=== PATIENT | female | born 2000 | race African-American/Black ===

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

== ENCOUNTER 2023-12-10 10:49 | Emergency (ER) | payer OTHER, SELFPAY ==
[2023-12-10] VITALS (18 sets, daily range): BP systolic 130–153; BP diastolic 73–101; PULSE 86–133; RESP 12–22; TEMP 36.6–36.9; O2SAT 96–100
[2023-12-10] MEDS: SODIUM CHLORIDE 0.9% IV 1,000 ML 999 ML IV CONT (11:17)
[2023-12-10 11:39] LABS: Basophils Percent Auto 0.3 % (0.2-1.2); Eosinophils Absolute Auto 0.1 K/mm3 (0-0.3); Eosinophils Percent Auto 0.8 % (0-4.4); Hematocrit 38.1 % (37.0-47.0); Hemoglobin 12.5 g/dL (12.0-15.0); Immature Granulocyte Absolute 0.05 K/mm3 (0.00-0.031); Immature Granulocyte Percent A 0.4 % (0-0.5); Lymphocytes Absolute Auto 1.04 K/mm3 (0.9-3.2); Lymphocytes Percent Auto 7.7 % (18.3-44.2); Mean Corpuscular HGB Conc 32.8 g/dl (32-36); Mean Corpuscular Hemoglobin 31.7 pg (26-34); Mean Corpuscular Volume 96.7 fl (80-100); Mean Platelet Volume 10.4 fl (7.4-10.4); Monocytes Absolute Auto 0.6 K/mm3 (0.1-0.6); Monocytes Percent Auto 4.3 % (2.6-8.5); Neutrophils Absolute Auto 11.6 K/mm3 (1.3-6.7); Neutrophils Percent Auto 86.5 % (45.5-73.1); Platelet Count Result 285 k/mm3 (150-375); Red Blood Count 3.94 M/mm3 (4.2-5.4); White Blood Count 13.5 K/mm3 (4.5-10.0)
[2023-12-10 12:04] LABS: Alanine Aminotransferase 12 U/L (6-35); Albumin Level 4.7 g/dL (3.5-5.1); Alkaline Phosphatase 50 U/L (38-126); Anion Gap 11 mmol/L (4-12); Aspartate Amino Transferase 26 U/L (14-36); Bilirubin,Total 0.3 mg/dL (0.2-1.3); Blood Urea Nitrogen 7 mg/dL (7-17); Calcium 9.2 mg/dL (8.4-10.2); Carbon Dioxide 23 mmol/L (22-30); Chloride 104 mmol/L (98-107); Estimated CRCL calculation 94 ml/min; Estimated Glomerular Filt Rate > 60; Glucose 95 mg/dL (65-110); Magnesium 1.9 mg/dL (1.6-2.3); Potassium 4.7 mmol/L (3.4-5.0); Sodium 138 mmol/L (137-145)
[2023-12-10] MEDS: levETIRAcetam 1000MG/NACL100ML 1,000 MG/100 ML BAG 400 MG IVPB (12:10)
--- NOTE | 2023-12-10 12:14 | ED.SEIZURE ---
HPI - Seizure General Chief Complaint: Seizure Stated Complaint: SEIZURE Time Seen by Provider: 12/10/23 10:52 Source: patient and EMS Mode of arrival: EMS Limitations: no limitations History of Present Illness HPI Narrative: This is a 23-year-old female, with reported history of 1 seizure previously, brought in by EMS after a seizure today. EMS reports the patient was at work, dressing a customer, when she reportedly stated to the middle distance and fell to the floor. EMS reports the patient appeared postictal and combative on arrival. She gradually regained orientation and was A&O x2 on arrival. The patient states she does not currently take medications for seizures. She has not yet followed up with a neurologist. She complains of mild left forearm pain but has no other complaints at this time. Related Data Allergies Allergy/AdvReac Type Severity Reaction Status Date / Time No Known Allergies Allergy Verified 09/29/20 23:00 Review of Systems Review of Systems: All systems reviewed & are unremarkable except as noted in HPI and below PMFSH Past Medical History Medical History Seizure Surgical History Surgical History No significant past surgical history Social History Social History Smoking status: Never smoker Alcohol intake: current Substance use: never Gender identity (if verbalized by the patient): Female Exam Narrative: GENERAL: Well-developed, well-nourished, and in no acute distress. Somewhat tearful HEAD: Normocephalic, atraumatic. EYES: PERRLA and EOMI. ENT: There is a lesion on the right lateral border of the tongue, consistent with tongue biting CHEST: Clear to auscultation. No respiratory distress. No wheezes rales or rhonchi HEART: Regular rate and rhythm. No murmur heard. Normal peripheral pulses. ABDOMEN: Soft, nontender, nondistended, normal active bowel sounds. EXTREMITIES: No obvious deformity or skin changes noted on the left forearm. Normal range of motion. No edema. SKIN: Warm, dry, no rash. NEURO: Alert and oriented x3. No focal deficit. Moving all 4 limbs spontaneously PSYCH: Normal mood and affect. Course Course Emergency Course: 13:50 - CBC demonstrates elevated white blood cell count of 13.5 but is otherwise unremarkable. Chemistries unremarkable with a lactic acid of 1.3. Total CK elevated at 319. UA not concerning for urinary tract infection and a urine test was negative. The patient has returned to baseline. Will discharge with Carlo and recommendation for neurology follow-up. I discussed the findings and recommendations with the patient. Discussed return and emergency precautions including signs/symptoms of recurrent seizures and focal neuro deficits. The patient voiced understanding and agreement with the plan. All questions answered to her satisfaction. Vital Signs Vital signs: Vital Signs Temperature 97.9 F 12/10/23 10:49 Pulse Rate 121 H 12/10/23 10:49 Respiratory Rate 18 12/10/23 10:49 Pulse Oximetry 100 12/10/23 10:49 Oxygen Delivery Room Air 12/10/23 10:49 Temperature 98.4 F 12/10/23 11:20 Pulse Rate 105 H 12/10/23 11:20 Respiratory Rate 15 12/10/23 11:20 Blood Pressure 136/73 12/10/23 11:20 Pulse Oximetry 100 12/10/23 11:20 Oxygen Delivery Room Air 12/10/23 11:00 MDM - Seizure MDM Narrative Medical decision making narrative: Plan: Labs, antiepileptics, reassess Differential Diagnosis Differential diagnosis: Likely other (Seizure, metabolic abnormality, , other) Lab Data 12/10/23 11:34 12/10/23 11:34 Labs: Lab Results 12/10/23 12/10/23 12/10/23 Range/Units 11:34 12:54 13:30 WBC 13.5 H (4.5-10.0) K/mm3 RBC 3.94 L (4.2-5.4) M/mm3 Hgb 12.5 (12.0-15.0) g/dL Hct 38.1
[2023-12-10 12:24] LABS: Creatine Kinase 319 U/L (30-135)
[2023-12-10 13:15] LABS: Lactic Acid Reflex 1.3 mmol/L (0.7-2.0)
[2023-12-10 13:41] LABS: Add Urine Microscopic? NO; Appearance Urine Clear (Clear); Bilirubin Urine Negative (Negative); Blood Urine Negative (Negative); Color Urine Yellow (Yellow); Glucose Urine UA Negative (Negative); Ketones Urine Negative (Negative); Leukocyte Esterase Ur Negative LEU/UL (Negative); Nitrate Urine Negative (Negative); Protein Urine Negative (Negative); Specific Grav Ur 1.005 (1.001-1.035); Urobilinogen Urine 0.2 mg/dL (<2.0); pH Urine 7.5 (5.0-9.0)
[2023-12-10 13:44] LABS: Pregnancy On Board Control Positive; Urine Pregnancy Test Negative
== END 2023-12-10 14:05 | disposition home or self-care (01) ==
PROVIDERS: Emergency Provider Preventive Medicine Aerospace Medicine
DX: R56.9 Unspecified convulsions (principal)
CPT/HCPCS: 36415; 80053; 81003; 81025; 82550; 83605; 83735; 85025; 96361; 96365; 99284; J1953; J7030